=== PATIENT | male | born 1950 | race Caucasian/White ===

== ENCOUNTER 2021-09-14 01:30 | Inpatient (IN) ==
[2021-09-14] MEDS ORDERED: 0.9 % Sodium Chloride 500 ML IVC ONE ×5 (02:12→07:25)
[2021-09-14] MEDS ORDERED: *HR* FentaNYL (PF) 100 MCG/2 ML VIAL IVP ONE (02:13)
[2021-09-14 02:58] LABS: Influenza A PCR Negative (Negative); Influenza B PCR Negative (Negative); Resp. Syncytial Virus PCR Negative (Negative)
[2021-09-14 02:59] LABS: SARS-CoV-2 by PCR (In House) Negative (Negative)
[2021-09-14 03:28] LABS: Basophils % 0.2 %; Eosinophils % 0.2 %; Hematocrit 42.8 % (37.5-50.1); Hemoglobin 13.1 g/dL (12.9-16.9); Immature Granulocytes % 0.7 % (0-4); Lymphocytes # 0.2 K/mcL (0.6-4.6); Lymphocytes % 1.4 %; Mean Corpuscular HGB Conc 30.6 g/dL (31.6-35.5); Mean Corpuscular Hemoglobin 27.5 pg (28.0-33.3); Mean Corpuscular Volume 89.7 fL (83.0-100.0); Monocytes # 0.5 K/mcL (0.0-1.3); Monocytes % 4.3 %; Platelet Count 167 K/mcL (140-400); Red Blood Count 4.77 M/mcL (4.19-5.50); Red Cell Distribution Width 13.2 % (11.5-14.5); Segmented Neutrophils % 93.2 %; White Blood Count 12.3 K/mcL (4.3-11.1)
[2021-09-14 03:30] LABS: Neutrophils # 11.5 K/mcL (1.6-8.9)
[2021-09-14 03:37] LABS: Prothrombin Time 11.5 Seconds (9.4-12.1)
[2021-09-14 03:40] LABS: Activated Partial Thrombo Time 32.2 Seconds (26.0-36.0)
[2021-09-14 03:46] LABS: Alanine Aminotransferase 11 Units/L (7-52); Albumin 3.9 g/dL (3.5-5.7); Albumin/Globulin Ratio 1.3 (1.1-2.2); Alkaline Phosphatase 97 Units/L (34-104); Aspartate Amino Transferase 14 Units/L (13-39); BUN/Creatinine Ratio 21 (6-26); Bilirubin,Direct 0.1 mg/dL (0.0-0.2); Bilirubin,Indirect 0.4 mg/dL (0.0-1.0); Bilirubin,Total 0.5 mg/dL (0.3-1.0); Blood Urea Nitrogen 18 mg/dL (8-23); Calcium 8.8 mg/dL (8.6-10.3); Carbon Dioxide 29 mEq/L (23-29); Chloride 100 mEq/L (98-107); Globulin 2.9 g/dL (2.4-3.5); Glucose 199 mg/dL (70-105); Magnesium 1.4 mg/dL (1.6-2.6); Osmolality,Calculated 279 (280-300); Phosphorous 2.8 mg/dL (2.7-4.5); Potassium 4.2 mEq/L (3.5-5.1); Sodium 131 mEq/L (136-145); Total Protein 6.8 g/dL (6.4-8.9); Troponin I 0.03 ng/mL (< 0.04); eGFR For African Americans > 60 (> 60); eGFR For Non-African Americans > 60 (> 60)
[2021-09-14] MEDS ORDERED: Vancomycin 1,500 MG/265 ML IV.SOLN IVPB ONE (03:49)
[2021-09-14] MEDS ORDERED: Cefepime HCl 1,000 MG in 0.9 % Sodium Chloride Mini Bag 100 ML IVPB STA (03:49)
[2021-09-14 04:17] LABS: VBG HCO3 29 mEq/L (21-27); VBG PCO2 54 mmHg (41-51); VBG PH 7.34 pH Units (7.32-7.42); VBG PO2 32 mmHg (25-50)
[2021-09-14] MEDS ORDERED: Ondansetron 4 MG/2 ML VIAL IVP ONE (08:56)
[2021-09-14] MEDS ORDERED: Pantoprazole 40 MG VIAL IVP ONE (09:28)
[2021-09-14] MEDS ORDERED: Naloxone 0.4 MG/ML INJ IVP PRN (09:44)
[2021-09-14] MEDS ORDERED: Dextrose Gel 15 GM/37.5 ML TUBE PO PRN ×2 (09:47)
[2021-09-14] MEDS ORDERED: D5% in Water 1,000 ML IVC PRN (09:47)
[2021-09-14] MEDS ORDERED: *HR* Dextrose 50 % in Water (Syg) 50 ML SYRINGE IVP PRN (09:47)
[2021-09-14] MEDS: Ipratropium/Albuterol Neb 3 ML IH SCH ×3 (10:18→20:47)
[2021-09-14] MEDS: Azithromycin 500 MG in 0.9 % Sodium Chloride 250 ML IVPB SCH (11:05)
[2021-09-14] MEDS ORDERED: MOM Conc 10 ML UD.LIQ PO PRN (11:27)
[2021-09-14] MEDS ORDERED: 0.9 % Sodium Chloride 1,000 ML IVC ONE (11:33)
[2021-09-14] MEDS: Insulin LISPRO 300 UNITS/3 ML VIAL SUBQ SCH ×3 (12:13→20:39)
[2021-09-14] MEDS: Budesonide/Formoterol 160/4.5 1 PUFF INH IH SCH ×2 (13:32→20:45)
[2021-09-14] MEDS: hydrOXYzine pamoate 25 MG CAPSULE PO SCH ×2 (13:46→21:53)
[2021-09-14] MEDS: cefTRIAXone 1,000 MG in 0.9 % Sodium Chloride Mini Bag 100 ML IVPB SCH (13:46)
[2021-09-14] MEDS: *HR* Heparin 5,000 UNIT/ML VIAL SQ SCH ×2 (13:46→21:53)
[2021-09-14] MEDS: Nicotine 14 MG PATCH.TD24 TD SCH (13:47)
[2021-09-14] MEDS: Ringers Solution, Lactated 1,000 ML IVC SCH ×2 (14:22→18:36)
[2021-09-14] MEDS: haloperidoL 5 MG TABLET PO SCH ×2 (16:13→21:53)
[2021-09-14] MEDS: Acetaminophen 325 MG TABLET PO PRN (17:25)
[2021-09-14] MEDS ORDERED: 0.9 % Sodium Chloride 500 ML ONE (19:03)
[2021-09-14] MEDS ORDERED: 0.9 % Sodium Chloride 500 ML IVC PRN (19:06)
[2021-09-14 20:02] LABS: Adenovirus Not Detected (Not Detect); Bordetella Pertussis Not Detected (Not Detect); Chlamydophila pneumoniae Not Detected (Not Detect); Coronavirus 229E Not Detected (Not Detect); Coronavirus HKU1 Not Detected (Not Detect); Coronavirus NL63 Not Detected (Not Detect); Coronavirus OC43 Not Detected (Not Detect); Human Metapneumovirus Not Detected (Not Detect); Human Rhinovirus/Enterovirus Not Detected (Not Detect); Influenza A Subtype 2009 H1 Not Detected (Not Detect); Influenza B Not Detected (Not Detect); Mycoplasma pneumoniae Not Detected (Not Detect); Parainfluenza Virus 1 Not Detected (Not Detect); Parainfluenza Virus 2 Not Detected (Not Detect); Parainfluenza Virus 3 Not Detected (Not Detect); Parainfluenza Virus 4 Not Detected (Not Detect); Respiratory Syncytial Virus Not Detected (Not Detect); SARS-CoV-2 Not Detected (Not Detect)
[2021-09-14] MEDS ORDERED: haloperidoL 5 MG TABLET PO SCH (21:00)
[2021-09-14] MEDS ORDERED: *HR* Methadone 5 MG TABLET PO SCH (21:00)
[2021-09-14] MEDS: Melatonin 3 MG TABLET PO SCH (21:53)
[2021-09-15] MEDS: Ondansetron 4 MG/2 ML VIAL IVP PRN ×2 (01:22→18:06)
[2021-09-15] MEDS: Ringers Solution, Lactated 1,000 ML IVC SCH (01:31)
[2021-09-15 03:17] LABS: Basophils % 0.4 %; Eosinophils # 0.1 K/mcL (0.0-0.6); Eosinophils % 0.8 %; Hematocrit 32.8 % (37.5-50.1); Immature Granulocytes % 0.6 % (0-4); Lymphocytes # 0.6 K/mcL (0.6-4.6); Lymphocytes % 6.4 %; Mean Corpuscular HGB Conc 31.1 g/dL (31.6-35.5); Mean Corpuscular Hemoglobin 28.6 pg (28.0-33.3); Mean Corpuscular Volume 91.9 fL (83.0-100.0); Mean Platelet Volume 9.7 fL (9.4-12.4); Monocytes # 0.5 K/mcL (0.0-1.3); Monocytes % 6.1 %; Neutrophils # 7.3 K/mcL (1.6-8.9); Platelet Count 124 K/mcL (140-400); Red Blood Count 3.57 M/mcL (4.19-5.50); Red Cell Distribution Width 13.5 % (11.5-14.5); Segmented Neutrophils % 85.7 %; White Blood Count 8.6 K/mcL (4.3-11.1)
[2021-09-15 03:21] LABS: Hemoglobin 10.2 g/dL (12.9-16.9)
[2021-09-15] MEDS: Ipratropium/Albuterol Neb 3 ML IH SCH ×4 (03:32→21:52)
[2021-09-15 03:34] LABS: BUN/Creatinine Ratio 20 (6-26); Blood Urea Nitrogen 12 mg/dL (8-23); Calcium 8.3 mg/dL (8.6-10.3); Carbon Dioxide 25 mEq/L (23-29); Chloride 109 mEq/L (98-107); Glucose 132 mg/dL (70-105); Magnesium 1.5 mg/dL (1.6-2.6); Osmolality,Calculated 290 (280-300); Potassium 3.5 mEq/L (3.5-5.1); Sodium 139 mEq/L (136-145); eGFR For African Americans > 60 (> 60); eGFR For Non-African Americans > 60 (> 60)
[2021-09-15] MEDS: *HR* Heparin 5,000 UNIT/ML VIAL SQ SCH ×3 (04:50→20:52)
[2021-09-15] MEDS: *HR* OxyCODONE Immed Rel 5 MG TABLET PO PRN ×3 (04:50→18:05)
[2021-09-15] MEDS: Budesonide/Formoterol 160/4.5 1 PUFF INH IH SCH ×2 (08:08→21:52)
[2021-09-15] MEDS: Insulin LISPRO 300 UNITS/3 ML VIAL SUBQ SCH ×4 (08:21→19:32)
[2021-09-15] MEDS: haloperidoL 5 MG TABLET PO SCH ×2 (08:28→20:51)
[2021-09-15] MEDS: Aspirin Enteric Coated 81 MG Tablet PO SCH (08:28)
[2021-09-15] MEDS: *HR* Methadone 5 MG TABLET PO SCH ×2 (08:29→20:51)
[2021-09-15] MEDS: Finasteride 5 MG TABLET PO SCH (08:29)
[2021-09-15] MEDS: hydrOXYzine pamoate 25 MG CAPSULE PO SCH ×3 (08:29→20:52)
[2021-09-15] MEDS: Nicotine 14 MG PATCH.TD24 TD SCH (08:30)
[2021-09-15] MEDS: Lactulose Oral Soln 20 GM/30 ML UDC PO SCH (08:33)
[2021-09-15] MEDS ORDERED: polyethylene glycoL 3350 17 GM POWD.PACK PO PRN (09:04)
[2021-09-15 09:10] LABS: Bilirubin,Urine Negative (Negative); Blood,Urine Negative (Negative); Clarity,Urine Clear (Clear); Color,Urine Colorless (Yellow); Glucose,Urine (UA) Normal (Normal); Ketones,Urine 10 mg/dL (Negative); Leukocyte Esterase,Urine Negative (Negative); Nitrite,Urine Negative (Negative); Protein,Urine Negative (Neg-Trace); Specific Gravity,Urine 1.009 (1.010-1.025); Urobilinogen,Urine Normal (Normal)
[2021-09-15] MEDS: Azithromycin 500 MG in 0.9 % Sodium Chloride 250 ML IVPB SCH (10:30)
[2021-09-15] MEDS: cefTRIAXone 1,000 MG in 0.9 % Sodium Chloride Mini Bag 100 ML IVPB SCH (14:26)
[2021-09-15] MEDS: Melatonin 3 MG TABLET PO SCH (20:51)
[2021-09-15] MEDS: Sennosides/Docusate Sodium TABLET PO SCH (20:51)
[2021-09-15] MEDS: Acetaminophen 325 MG TABLET PO PRN (22:44)
[2021-09-16] MEDS: *HR* OxyCODONE Immed Rel 5 MG TABLET PO PRN ×3 (03:28→23:28)
[2021-09-16] MEDS: Ipratropium/Albuterol Neb 3 ML IH SCH ×2 (04:19→10:44)
[2021-09-16 04:59] LABS: Basophils % 0.5 %; Eosinophils # 0.1 K/mcL (0.0-0.6); Eosinophils % 0.8 %; Hematocrit 33.8 % (37.5-50.1); Hemoglobin 10.3 g/dL (12.9-16.9); Immature Granulocytes % 0.5 % (0-4); Lymphocytes # 0.4 K/mcL (0.6-4.6); Mean Corpuscular HGB Conc 30.5 g/dL (31.6-35.5); Mean Corpuscular Hemoglobin 27.9 pg (28.0-33.3); Mean Corpuscular Volume 91.6 fL (83.0-100.0); Monocytes # 0.5 K/mcL (0.0-1.3); Monocytes % 6.8 %; Neutrophils # 5.7 K/mcL (1.6-8.9); Platelet Count 122 K/mcL (140-400); Red Blood Count 3.69 M/mcL (4.19-5.50); Red Cell Distribution Width 13.3 % (11.5-14.5); Segmented Neutrophils % 85.4 %; White Blood Count 6.6 K/mcL (4.3-11.1)
[2021-09-16 05:12] LABS: BUN/Creatinine Ratio 13 (6-26); Blood Urea Nitrogen 8 mg/dL (8-23); Calcium 8.6 mg/dL (8.6-10.3); Carbon Dioxide 29 mEq/L (23-29); Chloride 104 mEq/L (98-107); Glucose 151 mg/dL (70-105); Osmolality,Calculated 287 (280-300); Potassium 3.4 mEq/L (3.5-5.1); Sodium 138 mEq/L (136-145); eGFR For African Americans > 60 (> 60); eGFR For Non-African Americans > 60 (> 60)
[2021-09-16] MEDS: Doxycycline 100 MG CAPSULE PO SCH ×2 (05:36→16:45)
[2021-09-16] MEDS: *HR* Heparin 5,000 UNIT/ML VIAL SQ SCH ×3 (05:36→21:20)
[2021-09-16] MEDS: haloperidoL 5 MG TABLET PO SCH ×2 (07:58→20:13)
[2021-09-16] MEDS: Sennosides/Docusate Sodium TABLET PO SCH ×2 (07:58→20:13)
[2021-09-16] MEDS: *HR* Methadone 5 MG TABLET PO SCH ×2 (07:58→20:13)
[2021-09-16] MEDS: hydrOXYzine pamoate 25 MG CAPSULE PO SCH ×3 (07:59→20:13)
[2021-09-16] MEDS: Nicotine 14 MG PATCH.TD24 TD SCH (07:59)
[2021-09-16] MEDS: Lactulose Oral Soln 20 GM/30 ML UDC PO SCH (07:59)
[2021-09-16] MEDS: Finasteride 5 MG TABLET PO SCH (07:59)
[2021-09-16] MEDS: Aspirin Enteric Coated 81 MG Tablet PO SCH (07:59)
[2021-09-16] MEDS: Insulin LISPRO 300 UNITS/3 ML VIAL SUBQ SCH ×4 (07:59→19:16)
[2021-09-16] MEDS: Ondansetron 4 MG/2 ML VIAL IVP PRN (10:38)
[2021-09-16] MEDS: Budesonide/Formoterol 160/4.5 1 PUFF INH IH SCH ×2 (10:44→22:49)
[2021-09-16] MEDS: cefTRIAXone 1,000 MG in 0.9 % Sodium Chloride Mini Bag 100 ML IVPB SCH (13:31)
[2021-09-16] MEDS: Levalbuterol Neb 0.63 MG/3 ML IH SCH ×2 (15:42→22:49)
[2021-09-16] MEDS: Ipratropium Neb 0.5 MG NEBULIZER IH SCH ×2 (15:42→22:49)
[2021-09-16] MEDS: Melatonin 3 MG TABLET PO SCH (20:13)
[2021-09-16] MEDS: Acetaminophen 325 MG TABLET PO PRN (20:13)
[2021-09-17] MEDS: Levalbuterol Neb 0.63 MG/3 ML IH SCH ×4 (05:06→20:17)
[2021-09-17] MEDS: Ipratropium Neb 0.5 MG NEBULIZER IH SCH ×4 (05:06→20:17)
[2021-09-17] MEDS: *HR* Heparin 5,000 UNIT/ML VIAL SQ SCH ×3 (05:32→19:54)
[2021-09-17] MEDS: Doxycycline 100 MG CAPSULE PO SCH ×2 (05:32→17:58)
[2021-09-17] MEDS: Budesonide/Formoterol 160/4.5 1 PUFF INH IH SCH ×2 (07:32→20:17)
[2021-09-17 08:25] LABS: Basophils % 0.7 %; Eosinophils # 0.1 K/mcL (0.0-0.6); Eosinophils % 2.4 %; Hemoglobin 10.2 g/dL (12.9-16.9); Immature Granulocytes % 0.3 % (0-4); Lymphocytes # 0.6 K/mcL (0.6-4.6); Lymphocytes % 10.3 %; Mean Corpuscular Hemoglobin 27.6 pg (28.0-33.3); Mean Corpuscular Volume 92.1 fL (83.0-100.0); Mean Platelet Volume 9.4 fL (9.4-12.4); Monocytes # 0.4 K/mcL (0.0-1.3); Monocytes % 7.5 %; Neutrophils # 4.7 K/mcL (1.6-8.9); Platelet Count 129 K/mcL (140-400); Red Blood Count 3.69 M/mcL (4.19-5.50); Red Cell Distribution Width 13.3 % (11.5-14.5); Segmented Neutrophils % 78.8 %; White Blood Count 5.9 K/mcL (4.3-11.1)
[2021-09-17 09:21] LABS: Alanine Aminotransferase 10 Units/L (7-52); Albumin 3.2 g/dL (3.5-5.7); Albumin/Globulin Ratio 1.1 (1.1-2.2); Alkaline Phosphatase 64 Units/L (34-104); Aspartate Amino Transferase 13 Units/L (13-39); BUN/Creatinine Ratio 16 (6-26); Bilirubin,Total 0.4 mg/dL (0.3-1.0); Blood Urea Nitrogen 10 mg/dL (8-23); Calcium 8.6 mg/dL (8.6-10.3); Carbon Dioxide 32 mEq/L (23-29); Chloride 107 mEq/L (98-107); Globulin 2.9 g/dL (2.4-3.5); Glucose 173 mg/dL (70-105); Osmolality,Calculated 281 (280-300); Potassium 3.8 mEq/L (3.5-5.1); Sodium 134 mEq/L (136-145); Total Protein 6.1 g/dL (6.4-8.9); eGFR For African Americans > 60 (> 60); eGFR For Non-African Americans > 60 (> 60)
[2021-09-17] MEDS: *HR* Methadone 5 MG TABLET PO SCH ×2 (10:20→19:52)
[2021-09-17] MEDS: Lactulose Oral Soln 20 GM/30 ML UDC PO SCH (10:20)
[2021-09-17] MEDS: haloperidoL 5 MG TABLET PO SCH ×2 (10:20→19:53)
[2021-09-17] MEDS: hydrOXYzine pamoate 25 MG CAPSULE PO SCH ×3 (10:21→19:53)
[2021-09-17] MEDS: Sennosides/Docusate Sodium TABLET PO SCH ×2 (10:21→19:53)
[2021-09-17] MEDS: Nicotine 14 MG PATCH.TD24 TD SCH (10:21)
[2021-09-17] MEDS: Finasteride 5 MG TABLET PO SCH (10:21)
[2021-09-17] MEDS: Aspirin Enteric Coated 81 MG Tablet PO SCH (10:21)
[2021-09-17] MEDS: Insulin LISPRO 300 UNITS/3 ML VIAL SUBQ SCH ×4 (10:30→20:16)
[2021-09-17] MEDS: cefTRIAXone 1,000 MG in 0.9 % Sodium Chloride Mini Bag 100 ML IVPB SCH (14:28)
[2021-09-17] MEDS: *HR* OxyCODONE Immed Rel 5 MG TABLET PO PRN (16:21)
[2021-09-17] MEDS: Melatonin 3 MG TABLET PO SCH (19:52)
[2021-09-18] MEDS: *HR* OxyCODONE Immed Rel 5 MG TABLET PO PRN (03:19)
[2021-09-18] MEDS: Levalbuterol Neb 0.63 MG/3 ML IH SCH ×2 (03:40→08:47)
[2021-09-18] MEDS: Ipratropium Neb 0.5 MG NEBULIZER IH SCH ×2 (03:40→08:47)
[2021-09-18 04:11] LABS: White Blood Count 5.1 K/mcL (4.3-11.1)
[2021-09-18 04:12] LABS: Basophils % 0.8 %; Eosinophils # 0.2 K/mcL (0.0-0.6); Eosinophils % 3.3 %; Hematocrit 30.7 % (37.5-50.1); Hemoglobin 9.5 g/dL (12.9-16.9); Immature Granulocytes % 0.4 % (0-4); Lymphocytes # 0.6 K/mcL (0.6-4.6); Mean Corpuscular HGB Conc 30.9 g/dL (31.6-35.5); Mean Corpuscular Hemoglobin 28.2 pg (28.0-33.3); Mean Corpuscular Volume 91.1 fL (83.0-100.0); Monocytes # 0.4 K/mcL (0.0-1.3); Monocytes % 8.4 %; Neutrophils # 3.8 K/mcL (1.6-8.9); Platelet Count 141 K/mcL (140-400); Red Blood Count 3.37 M/mcL (4.19-5.50); Red Cell Distribution Width 13.2 % (11.5-14.5); Segmented Neutrophils % 75.1 %
[2021-09-18 04:29] LABS: BUN/Creatinine Ratio 15 (6-26); Blood Urea Nitrogen 8 mg/dL (8-23); Calcium 8.4 mg/dL (8.6-10.3); Carbon Dioxide 32 mEq/L (23-29); Chloride 102 mEq/L (98-107); Glucose 122 mg/dL (70-105); Osmolality,Calculated 284 (280-300); Potassium 3.7 mEq/L (3.5-5.1); Sodium 137 mEq/L (136-145); eGFR For African Americans > 60 (> 60); eGFR For Non-African Americans > 60 (> 60)
[2021-09-18] MEDS: *HR* Heparin 5,000 UNIT/ML VIAL SQ SCH (05:30)
[2021-09-18] MEDS: Doxycycline 100 MG CAPSULE PO SCH (05:30)
[2021-09-18] MEDS: Sennosides/Docusate Sodium TABLET PO SCH (07:35)
[2021-09-18] MEDS: Finasteride 5 MG TABLET PO SCH (07:35)
[2021-09-18] MEDS: Aspirin Enteric Coated 81 MG Tablet PO SCH (07:35)
[2021-09-18] MEDS: Nicotine 14 MG PATCH.TD24 TD SCH (07:36)
[2021-09-18] MEDS: Lactulose Oral Soln 20 GM/30 ML UDC PO SCH (07:36)
[2021-09-18] MEDS: hydrOXYzine pamoate 25 MG CAPSULE PO SCH (07:36)
[2021-09-18] MEDS: *HR* Methadone 5 MG TABLET PO SCH (07:36)
[2021-09-18] MEDS: haloperidoL 5 MG TABLET PO SCH (07:38)
[2021-09-18] MEDS: Insulin LISPRO 300 UNITS/3 ML VIAL SUBQ SCH ×2 (07:57→12:15)
[2021-09-18] MEDS: Budesonide/Formoterol 160/4.5 1 PUFF INH IH SCH (08:47)
[2021-09-18 11:29] VITALS: BP 91/62; PULSE 82; TEMP 97.2; O2SAT 92
== END 2021-09-18 13:14 | DRG 871 ==
LOC: 2NENU 01:30 → EMEROOARM 01:30 → SUATTDRO 09:59 → 2NENU 10:49
PROVIDERS: ADMIT Family Medicine; ATTEND Internal Medicine